=== PATIENT | female | born 1985 | race African-American/Black ===

== ENCOUNTER 2017-06-02 01:28 | Emergency (ER) | payer OTHER, SELFPAY ==
[2017-06-02 01:58] LABS: #Eosinphils 0.1 thou/uL (0.0-0.7); #Lymphocytes 1.7 thou/uL (1.20-3.40); #Monocytes 0.4 thou/uL (0.11-0.59); #Neutrophils 6.3 thou/uL (1.40-6.50); %Basophils 0.6 % (0.0-1.0); %Eosinophils 0.7 % (0.0-10.0); %Lymphocytes 19.8 % (21.0-51.0); %Monocytes 4.8 % (0.0-10.0); %Neutrophils 74.1 % (42.0-75.0); Hemoglobin 12.1 g/dL (12.0-16.0); Mean Corpuscular HGB CONC 33.7 g/dL (32.0-36.0); Mean Corpuscular Hemoglobin 32.4 pg (27.0-31.0); Mean Corpuscular Volume 96.2 fl (81.0-99.0); Mean Platelet Volume 6.9 fL (7.4-10.4); Platelet Count 283 thou/uL (130-400); RBC Distribution Width 11.4 % (11.5-14.5); Red Blood Cell (RBC) Count 3.73 mill/uL (4.20-5.40); White Blood Cell (WBC) Count 8.4 thou/uL (4.8-10.8)
[2017-06-02 01:59] LABS: Bilirubin Small (Negative); Blood, Urine Negative (Negative); Clarity CLOUDY (Clear); Glucose, Urine (Dipstick) Negative (Negative); Leukocyte Small (Negative); Nitrite Negative (Negative); Pregnancy Test - Urine (BHCG) Negative (Negative); Pregu Control Background? CLEAR/WHITE (CLR/WHITE); Pregu Control Bar Appear? YES (CONTROL BAR); Protein, Urine (Dipstick) 30 mg/dL (Neg-Trace); Specific Gravity 1.023 (1.002-1.036); Specific Gravity, Urine 1.023 (1.002-1.036)
[2017-06-02 02:02] LABS: Bacteria/HPF None Seen HPF (None Seen); Hyaline Casts/LPF 4-6 HYALINE CAST LPF (0-3 Hyaline); Pathc Cast-AUWi Flag 0.43 (0-2.49)
[2017-06-02 02:18] LABS: ALT (SGPT) 8 U/L (8-55); AST (SGOT) 12 U/L (5-34); Albumin 4.3 g/dL (3.5-5.0); Alkaline Phosphatase 46 U/L (40-150); Anion Gap 13 mmol/L (10-20); BUN (Urea Nitrogen) 6 mg/dL (7.0-18.7); Bilirubin, Total 0.3 mg/dL (0.2-1.2); Calc. Creatinine Clearance 0 mL/min (70-130); Calcium 10.1 mg/dL (7.8-10.44); Carbon Dioxide 28 mmol/L (22-29); Chloride 104 mmol/L (98-107); Estimated GFR-MDRD Greater than 90; Globulin 3.9 g/dL (2.4-3.5); Glucose 74 mg/dL (70-105); Lipase 11 U/L (8-78); Potassium 3.4 mmol/L (3.5-5.1); Protein, Total 8.2 g/dL (6.0-8.3); Sodium 142 mmol/L (136-145)
--- NOTE | 2017-06-02 11:53 | ULT ---
PRELIMINARY REPORT/[facility]/EMERGENTY AFTER-HOURS PROCEDURE US Abdomen Limited, Right Upper Quadrant CLINICAL HISTORY: 31 years old, female; Pain; Other: Ruq pain TECHNIQUE: Real-time ultrasound of the right upper quadrant with image documentation. COMPARISON: No relevant prior studies available. FINDINGS: Prominent echogenic densities with acoustic shadowing in the fossa, compatible with a gallbladder con tracted around multiple gallstones. No gallbladder wall thickening or pericholecystic fluid. Technologist states patient tender over the gallbladder region during scanning. No biliary dilation, common duct measures 3.6 mm. Unremarkable li eloy, no focal abnormality. Visible pancreas unremarkable. Images of the right kidney show no hydronep hrosis. IMPRESSION: Cholelithiasis, see above details. No biliary tree dilation. Thank you for allowing us to participate in the care of your patient. Dictated and Authenticated by: Juan Berry MD 06/02/2017 5:24 AM Central Time ([place] & [place]) FINAL REPORT RIGHT UPPER QUADRANT ULTRASOUND: Date: 06/02/17 COMPARISON: None. HISTORY: Right upper quadrant pain. FINDINGS: I agree with the preliminary report given by [facility]. Imaged pancreas appears grossly unremarkable. No f ocal liver lesion or intrahepatic biliary dilatation. There is a well echo shadow sign suggesting a gallbladder filled with stones. No pericholecystic flui d or gallbladder wall thickening. The common bile duct measures 4.0 mm, within normal limits. The rig ht kidney measures 10.0 cm in craniocaudal dimension and demonstrates no stone, hydronephrosis, or m ass. The emotionally impaired teacher reports a slightly positive Eastman's sign. IMPRESSION: Cholelithiasis with no evidence for biliary dilatation. The presence of a slightly positive Mur phy's sign is uncertain. Clinical correlation is advised for possible cholecystitis. POS: [facility]
== END 2017-06-02 05:44 | disposition home or self-care (01) ==
LOC: ERS 01:28
DX: K80.20 Calculus of gallbladder without cholecystitis without obstruction (principal)
CPT/HCPCS: 36415; 76705; 80053; 81003; 81015; 81025; 83690; 85025

== ENCOUNTER 2017-06-06 17:56 | Observation (INO) | payer SELFPAY ==
[2017-06-06 18:56] LABS: #Lymphocytes 1.1 thou/uL (1.20-3.40); #Monocytes 0.5 thou/uL (0.11-0.59); #Neutrophils 8.6 thou/uL (1.40-6.50); %Basophils 0.1 % (0.0-1.0); %Eosinophils 0.4 % (0.0-10.0); %Lymphocytes 10.6 % (21.0-51.0); %Monocytes 5.1 % (0.0-10.0); %Neutrophils 83.8 % (42.0-75.0); Hemoglobin 11.8 g/dL (12.0-16.0); Mean Corpuscular HGB CONC 35.2 g/dL (32.0-36.0); Mean Corpuscular Hemoglobin 33.5 pg (27.0-31.0); Mean Corpuscular Volume 95.3 fl (81.0-99.0); Mean Platelet Volume 6.6 fL (7.4-10.4); Platelet Count 312 thou/uL (130-400); RBC Distribution Width 11.3 % (11.5-14.5); Red Blood Cell (RBC) Count 3.51 mill/uL (4.20-5.40); White Blood Cell (WBC) Count 10.3 thou/uL (4.8-10.8)
[2017-06-06 18:57] LABS: Bilirubin Negative (Negative); Blood, Urine Negative (Negative); Clarity CLOUDY (Clear); Glucose, Urine (Dipstick) Negative (Negative); Leukocyte Small (Negative); Nitrite Negative (Negative); Protein, Urine (Dipstick) Trace mg/dL (Neg-Trace); Specific Gravity, Urine 1.017 (1.002-1.036); pH, Urine 6.5 (5.0-9.0)
[2017-06-06 18:59] LABS: Bacteria/HPF Rare-Few HPF (None Seen); Hyaline Casts/LPF 7-10 HYALINE CAST LPF (0-3 Hyaline); Pathc Cast-AUWi Flag 0.87 (0-2.49); RBC/HPF 0-3 HPF (0-3)
[2017-06-06 19:04] LABS: Pregnancy Test - Urine (BHCG) Negative (Negative); Pregu Control Background? CLEAR/WHITE (CLR/WHITE); Pregu Control Bar Appear? YES (CONTROL BAR); Renal Epithelial None Seen HPF (0-3); Specific Gravity 1.017 (1.002-1.036); Transitional Epithelial NONE SEEN HPF (0-3)
[2017-06-06 19:17] LABS: ALT (SGPT) 17 U/L (8-55); AST (SGOT) 22 U/L (5-34); Alkaline Phosphatase 67 U/L (40-150); Anion Gap 13 mmol/L (10-20); BUN (Urea Nitrogen) 6 mg/dL (7.0-18.7); Bilirubin, Total 0.5 mg/dL (0.2-1.2); Calc. Creatinine Clearance 0 mL/min (70-130); Calcium 9.6 mg/dL (7.8-10.44); Carbon Dioxide 24 mmol/L (22-29); Chloride 103 mmol/L (98-107); Estimated GFR-MDRD Greater than 90; Globulin 4.5 g/dL (2.4-3.5); Glucose 83 mg/dL (70-105); Lipase 5 U/L (8-78); Potassium 3.4 mmol/L (3.5-5.1); Protein, Total 8.5 g/dL (6.0-8.3); Sodium 137 mmol/L (136-145)
[2017-06-06] MEDS ORDERED: Ondansetron ODT 8 MG TAB ONE (19:48)
[2017-06-06] MEDS ORDERED: Fentanyl 100 MCG/2 ML VIAL ONE (19:49)
--- NOTE | 2017-06-06 20:52 | ULT ---
RIGHT UPPER QUADRANT ULTRASOUND: 06/06/17 COMPARISON: 06/02/17 TECHNIQUE: Utilizing multihertz transducer, sonographic imaging of the right upper quadrant is performed in the longitudinal and transverse plain. FINDINGS: Limited evaluation of the pancreas. Appropriate echotexture of the liver. Main portal vein is patent. Appropriate directional flow. No hydronephrosis. Right kidney measures 10.9 cm in maximum dimension. Multiple echogenic foci with s hadowing involving the lumen of the gallbladder. Gallbladder wall is not thickened. No pericholecysti c fluid. There is a positive Eastman's sign. Common bile duct diameter is 0.3 cm. IMPRESSION: Sonographic evidence of cholelithiasis with findings that are suspicious for cholecystitis. HIDA scan is recommended. POS: [facility]
[2017-06-06] MEDS ORDERED: Piperacillin/Tazobactam 3.375 GM VIAL ONE (22:38)
[2017-06-06 23:31] VITALS: BMI 24.5
[2017-06-06] MEDS ORDERED: Morphine 4 MG/ML VIAL SLOW IVP PRN (23:48)
[2017-06-06] MEDS ORDERED: Ondansetron ODT 4 MG TAB SL PRN (23:49)
[2017-06-06] MEDS ORDERED: Ondansetron HCl/PF 4 MG/2 ML Vial IVP PRN (23:49)
[2017-06-07] MEDS: Sodium Chloride 0.9% 1,000 ML IV SCH ×2 (00:09→08:50)
[2017-06-07] MEDS: Morphine 4 MG/ML VIAL SLOW IVP PRN ×2 (00:10→09:16)
[2017-06-07] MEDS ORDERED: Piperacillin/Tazobactam 3.375 GM in Sodium Chloride 0.9% 100 ML IVPB SCH ×2 (05:00→12:00)
[2017-06-07] MEDS ORDERED: Ondansetron HCl/PF 4 MG/2 ML Vial IVP PRN (10:20)
[2017-06-07] MEDS ORDERED: Morphine 4 MG/ML VIAL SLOW IVP PRN ×2 (10:20)
[2017-06-07] MEDS ORDERED: Acetaminophen 1,000 MG in Premix Bag 1 BAG IVPB PRN (10:37)
[2017-06-07 10:55] LABS: #Basophils 0.1 thou/uL (0.0-0.2); #Lymphocytes 1.1 thou/uL (1.20-3.40); #Monocytes 0.6 thou/uL (0.11-0.59); #Neutrophils 8.6 thou/uL (1.40-6.50); %Basophils 0.5 % (0.0-1.0); %Eosinophils 0.2 % (0.0-10.0); %Lymphocytes 10.3 % (21.0-51.0); Hemoglobin 10.1 g/dL (12.0-16.0); Mean Corpuscular HGB CONC 33.9 g/dL (32.0-36.0); Mean Corpuscular Hemoglobin 32.7 pg (27.0-31.0); Mean Corpuscular Volume 96.2 fl (81.0-99.0); Mean Platelet Volume 6.5 fL (7.4-10.4); Platelet Count 282 thou/uL (130-400); RBC Distribution Width 11.3 % (11.5-14.5); Red Blood Cell (RBC) Count 3.08 mill/uL (4.20-5.40); White Blood Cell (WBC) Count 10.3 thou/uL (4.8-10.8)
[2017-06-07 11:09] LABS: ALT (SGPT) 13 U/L (8-55); AST (SGOT) 16 U/L (5-34); Albumin 3.4 g/dL (3.5-5.0); Alkaline Phosphatase 55 U/L (40-150); Anion Gap 11 mmol/L (10-20); BUN (Urea Nitrogen) 4 mg/dL (7.0-18.7); Bilirubin, Total 0.5 mg/dL (0.2-1.2); Calc. Creatinine Clearance 123 mL/min (70-130); Calcium 8.6 mg/dL (7.8-10.44); Carbon Dioxide 24 mmol/L (22-29); Chloride 105 mmol/L (98-107); Estimated GFR-MDRD Greater than 90; Globulin 3.5 g/dL (2.4-3.5); Glucose 85 mg/dL (70-105); Potassium 3.3 mmol/L (3.5-5.1); Protein, Total 6.9 g/dL (6.0-8.3); Sodium 137 mmol/L (136-145)
--- NOTE | 2017-06-07 11:13 | HP ---
CHIEF COMPLAINT: Abdominal pain. HISTORY OF PRESENT ILLNESS: Ms. Garcia is a 31-year-old woman admitted through the emergency room l ast night for unrelenting right upper quadrant pain. She states that this started about a week ago. She came into the emergency room 5 days ago and was diagnosed with gallstones. Her labs were normal and her pain came down with pain medications, so [facility] was discharged [facility] but has not yet [facility] so. She returned to the emergency room last night, because the pain was so severe that she could not tolerate it anymore. A repeat ultrasound confirmed the diagnosis of ga llstones. Her bile duct was not dilated and she did not have a white count or an elevation in her tr ansaminases or bilirubin; however, she did have a positive Eastman sign and was felt to have acute cho lecystitis. Since being admitted, and receiving IV antibiotics and pain medications, her pain is bet ter. She states that the pain is worse in the right upper quadrant under the ribs and it goes to her back and around to her left abdomen. She has had nausea, but no vomiting, and the pain is made wors e by trying to eat. It has been unrelenting since it is onset a week ago and steadily growing worse. PAST MEDICAL HISTORY: None. PAST SURGICAL HISTORY: and ORIF of the left forearm. FAMILY HISTORY: Noncontributory. SOCIAL HISTORY: She does smoke about 1/4 pack a day. Does not drink or use illicit drugs. MEDICATIONS: She does not take any medications as an outpatient. Since being admitted, she has been on Zosyn. ALLERGIES: No known drug allergies. REVIEW OF SYSTEMS: Ten system review of systems is negative except per HPI. She specifically denies jaundice, icterus or change in the color of her urine. She has not had any subjective fevers or chi lls, although she is running a temperature this morning. PHYSICAL EXAMINATION: VITAL SIGNS: Current temperature is 102. She has been afebrile previously, heart rate 88, respirati ons 15, 97% saturated on room air, blood pressure 96/63. GENERAL: Reveals a healthy appearing woman, in no acute distress. She is not flushed or toxic in ap pearance. She is not jaundiced or icteric. HEENT: Unremarkable. NECK: Supple, without lymphadenopathy or thyroid nodules. HEART: Regular in its rate and rhythm. She does have a soft systolic murmur. She does state that s he has been told in the past that she has a murmur. She has not sought evaluation for this and she d oes not have any cardiac symptoms. LUNGS: Clear to auscultation bilaterally. ABDOMEN: Soft and nondistended. She has a healed Pfannenstiel incision. No palpable masses or evelyn ias. She is very tender to palpation in the right upper quadrant, epigastrium and slightly in the le ft upper quadrant. EXTREMITIES: Warm and well perfused without edema. NEUROLOGIC: No focal deficits. PSYCHIATRIC: Alert, oriented, and appropriate. LABORATORY DATA AND IMAGING: White count is normal at 10.3, although she does have a bit of a left s hift at 83% neutrophils, hematocrit is 33.4 and platelets are 312. Electrolytes are unremarkable and LFTs are normal. UA was contaminated, but unremarkable and negative for bilirubin. Ultrasound show ed stones with a normal caliber bile duct. She did not have wall thickening or pericholecystic fluid , but did have a positive sonographic Eastman sign. ASSESSMENT: Cholelithiasis and cholecystitis without evidence of choledocholithiasis. PLAN: Laparoscopic cholecystectomy. Repeat labs and a blood culture has been ordered. We will main tain her on IV antibiotics perioperatively. If she recovers well postoperatively, she may be dischar [facility] home unless her fevers persist. The diagnosis and recommended treatment were discussed with the patient. The inherent risks of the operation were discussed as well. These include but are not limi jacquelin to bleeding, infection, risks of anesthesia, damage to nearby structures including bowel, liver a nd bile duct, need for open operation and need for other surgeries. She understands and accepts thes e risks and wishes to proceed. If her repeat LFTs are elevated, then an intraoperative cholangiogram will be performed as well.
[2017-06-07] MEDS ORDERED: Midazolam HCl 2 mg/2 ml Vial ONE (12:00)
[2017-06-07] MEDS ORDERED: Promethazine HCl 25 MG/ML VIAL ONE (12:00)
[2017-06-07] MEDS ORDERED: Fentanyl 250 MCG/5 ML VIAL ONE (12:00)
[2017-06-07] MEDS ORDERED: Bupivacaine/Epinephrine 0.25% 30 ML VIAL ONE (12:06)
[2017-06-07] MEDS ORDERED: HYDROmorphone 0.5 MG/0.5 ML SYRINGE ONE (13:22)
[2017-06-07] MEDS ORDERED: Fentanyl 100 MCG/2 ML VIAL ONE (14:26)
[2017-06-07 14:49] VITALS: BP 99/67; TEMP 98.1
[2017-06-07] MEDS ORDERED: ALPRAZolam 0.25 MG TAB PO PRN (15:50)
[2017-06-07] MEDS ORDERED: Dexamethasone 20 MG/5 ML VIAL ONE (16:17)
[2017-06-07] MEDS ORDERED: PROPOFOL 200 MG/20 ML VIAL ONE (16:17)
[2017-06-07] MEDS ORDERED: Lidocaine 1% PF 5 ML VIAL ONE (16:17)
[2017-06-07] MEDS ORDERED: Glycopyrrolate 0.2 MG/ML 5 ML SYRINGE ONE (16:17)
[2017-06-07] MEDS ORDERED: HYDROcodone/Acetaminophen 7.5/325 mg Tablet PO PRN ×2 (16:55→16:56)
--- NOTE | 2017-06-10 15:23 | PDOC.OP ---
Operative Note - Operative Note Operative Note: PROCEDURE: Laparoscopic cholecystectomy SURGEON: Mikaela Gill M.D. DATE OF PROCEDURE: 06/07/2017 PREOPERATIVE DIAGNOSIS: Cholelithiasis and cholecystitis POSTOPERATIVE DIAGNOSIS: Cholelithiasis and cholecystitis HISTORY: The patient presented to the emergency room with intractable abdominal pain and symptoms consistent with acute cholecystitis. She was found to have gallstones on ultrasound but no biliary dilatation and her LFTs were normal. FINDINGS: White walled gallbladder with acute-appearing omental adhesions. Stone impacted in the neck of the gallbladder. PROCEDURE IN DETAIL: After informed consent was obtained and appropriate preoperative antibiotics were administered, the patient was taken to the operating room and placed in the supine position and general endotracheal anesthesia was administered. The stomach was decompressed with an OG tube and the abdomen was prepped and draped in standard sterile fashion. Local anesthesia was infused to the skin and subcutaneous tissues at the umbilical level. A transverse skin incision was made. The fascia was elevated and a Veress needle was placed into the abdominal cavity without difficulty. Opening pressure was less than 5 and carbon dioxide gas easily insufflated to an intra- abdominal pressure of 15, which the patient tolerated well. The Veress needle was withdrawn and a [place] port advanced under direct vision. The abdominal cavity was carefully examined. There was no evidence of Veress needle or of trocar injury. Local anesthesia was infused to the skin and subcutaneous tissues at the epigastric, right upper quadrant, and right lateral abdominal sites and trocars were placed under direct vision of the laparoscope. The fundus of the gallbladder was grasped and retracted superiorly. The patient had acute-appearing omental adhesions which were easily able to be mobilized off of the gallbladder exposing the infundibulum. The infundibulum was grasped and retracted laterally. The patient was noted to have a stone impacted in the neck of her gallbladder consistent with her history of intractable pain. The serosa was stripped inferiorly at the level of the neck of the gallbladder exposing the cystic duct and artery which were traced clearly to their insertion in the gallbladder. Critical view of safety was obtained and the cystic duct and artery were clipped and divided between clips. The gallbladder was then dissected free of the gallbladder bed using hook electrocautery. Prior to complete removal of the gallbladder from the gallbladder bed, the area of the cystic duct and artery stumps was examined. The clips were in good position completely across these structures and there was no bleeding and no leakage of bile. The gallbladder was then placed into an EndoCatch bag and drawn out through the epigastric incision. The epigastric trocar was replaced and the operative site easily irrigated to clear. There was no significant bleeding or spillage of bile. The epigastric trocar was removed and the fascia closed under direct laparoscopic vision with a 0 Vicryl suture on a GraNee needle in a [id number] manner with excellent technical result. The right upper quadrant and right lateral abdominal trocars were removed and hemostasis verified. Carbon dioxide gas was allowed to desufflate through the umbilical trocar which was then removed. The skin incisions were closed with 4-0 subcuticular Monocryl sutures and Dermabond dressings were placed. The patient was extubated and taken to the recovery room in good condition. There were no complications. ESTIMATED BLOOD LOSS: Minimal. SPECIMEN : Gallbladder and contents.
== END 2017-06-07 17:21 | disposition home or self-care (01) ==
LOC: ERS 17:56 → SJJU 21:22
PROVIDERS: ADMIT Surgery; ATTEND Surgery
PROC: 0FT44ZZ Resection of Gallbladder, Percutaneous Endoscopic Approach (ICD-10-PCS; principal; 2017-06-07)
DX: K80.10 Calculus of gallbladder with chronic cholecystitis without obstruction (principal); F17.210 Nicotine dependence, cigarettes, uncomplicated; Z98.890 Other specified postprocedural states
CPT/HCPCS: 36415; 76705; 80053; 81003; 81015; 81025; 83690; 85025; 87040; 88304; 96361; 96365; 96366; 96375; 96376; 99406; G0378; J1100; J1170; J2001; J2250; J2270; J2543; J2550; J2704; J3010; J7050